=== PATIENT | male | born 1965 | race Caucasian/White ===

== ENCOUNTER 2025-01-03 06:18 | Day surgery (SDC) | payer OTHER, SELFPAY ==
[2025-01-03 08:12] LABS: Glucose - Point of Care 103 mg/dl (70-99)
== END 2025-01-03 09:36 | disposition home or self-care (01) ==
LOC: GI 06:18
PROVIDERS: ATTENDING PHYSICIAN Internal Medicine Gastroenterology
DX: Z12.11 Encounter for screening for malignant neoplasm of colon (principal); Z86.0100 Personal history of colon polyps, unspecified; K57.30 Diverticulosis of large intestine without perforation or abscess without bleeding; K64.8 Other hemorrhoids; D12.5 Benign neoplasm of sigmoid colon; K63.5 Polyp of colon; K22.70 Barrett's esophagus without dysplasia; K44.9 Diaphragmatic hernia without obstruction or gangrene
CPT/HCPCS: 45380; 43239; 88305; 82962